=== PATIENT | female | born 1990 | race Caucasian/White ===

== ENCOUNTER 2016-11-27 15:34 | Emergency (ER) | payer OTHER ==
[~2016-11-27] VITALS: Ht 157.5 cm; Wt 65.5 kg
[2016-11-27 15:41] VITALS: TEMP 37; Ht 157.5 cm; Wt 65.5 kg
[2016-11-27] MEDS ORDERED: ACETAMINOPHEN 325 MG TAB PO STA (17:06)
[2016-11-27] MEDS ORDERED: SODIUM CHLORIDE 0.9% 1000ML 1,000 ML IV STA (17:06)
[2016-11-27] MEDS ORDERED: ACET-1311 PO (17:37)
[2016-11-27] MEDS ORDERED: IBUP-1050 PO (17:37)
[2016-11-27 18:02] LABS: URINE APPEARANCE CLOUDY (CLEAR); URINE BILIRUBIN NEG (NEG); URINE COLOR DK YELLOW; URINE EPITHELIAL CELL AUTO >30 /lpf (0-5); URINE NITRITE NEG (NEG); URINE PH 5.5 (4.5-7.5); URINE SPECIFIC GRAVITY 1.025 (1.000-1.030); UROBILINOGEN NEG (NEG)
[2016-11-27 18:05] LABS: MANUAL MICROSCOPIC REQUIRED? NO; REVIEW REQ? YES
[2016-11-27 18:14] LABS: URINE MUCUS PRESENT (NONE PRSENT)
[2016-11-27 18:45] LABS: BASO % 0.1 %; BASO ABS # 0.01 K/uL (0-0.2); COMPLETE YES; EOS % 0.1 %; HEMATOCRIT 40.2 % (37-47); IG% 0.2 %; LYMPH % 11.2 %; LYMPH ABS # 1.44 K/uL (1.2-3.4); MEAN CELL VOLUME 87.6 fL (80-100); MEAN CORPUSCULAR HEMOGLOBIN 29.8 pg (25-34); MEAN CORPUSCULAR HGB CONC 34.1 g/dl (32-36); MONO % 8.5 %; NEUT % 79.9 %; PLATELET COUNT 237 K/uL (130-400); RED BLOOD COUNT 4.59 M/uL (4.2-5.4); WHITE BLOOD COUNT 12.86 K/uL (4.8-10.8)
[2016-11-27 19:17] LABS: BUN/CREATININE RATIO 13.3 (10-20); CALCIUM 8.9 mg/dl (8.5-10.1); CREATININE 0.59 mg/dl (0.60-1.20); POTASSIUM 3.4 mmol/L (3.5-5.1)
--- NOTE | 2016-11-27 19:37 | DIAGNOSTIC IMAGING REPORT ---
CHEST 2 VIEWS ROUTINE CLINICAL HISTORY: Persistent cough. COMPARISON STUDY: No previous studies for comparison. FINDINGS: The cardiac and mediastinal contours are normal. There is no evidence of focal pulmonary consolidation. There is no evidence of failure. No pleural effusions are visualized.[ IMPRESSION: No active disease in the chest. Electronically signed by: Yusuf Castro M.D. 11/27/2016 7:36 PM Dictated Date/Time: 11/27/2016 7:36 PM
[2016-11-27] MEDS ORDERED: AMOXICILLIN 250 MG CAP PO STA (20:02)
[2016-11-27] MEDS ORDERED: AMOX500C3 PO (20:04)
[2016-11-27 20:22] VITALS: BP 109/86; PULSE 86; O2SAT 98
[2016-11-27 20:22] LABS: LYME DISEASE AB IGG NEG (NEG); LYME DISEASE AB IGM EQUIVOCAL (NEG)
--- NOTE | 2016-11-27 22:07 | EMERGENCY ROOM VISIT NOTE ---
History Report prepared by Iveth: Mary Ivey Under the Supervision of: Dr. Bassem Garcia M.D. First contact with patient: 16:58 Chief Complaint: FLU LIKE SX Stated Complaint: FEVER,CONGESTED,VOMITING,STIFF NECK,COUGH History of Present Illness The patient is a 26 year old female who presents to the Emergency Room with complaints of persistent flu-like symptoms that began about a month ago. The patient notes that she has had a productive cough with yellow sputum for several weeks now. She feels slightly short of breath with coughing but denies shortness of breath when she is not coughing. She also complains of a fever, headache and congestion which have been continuous. Her highest temperature was 101. This morning, her temperature was 100.7. She also reports body aches and neck tightness. She had some diarrhea about a week ago and started vomiting more recently. She does not have an appetite. The patient took Advil today but has not taken Tylenol. Denies chest pain, abdominal pain, chance of , or other complaints. The patient is currently on her period and denies chance of . She has never had mono or strep. Source of History: patient Onset: 1 month ago Position: other (global) Quality: other (flu-like symptoms) Timing: other (persistent) Associated Symptoms: + SOB (with coughing), + cough (productive with yellow sputum), + diarrhea, + fevers (Tmax 101), + neck pain, + sorethroat, + vomiting , No abdominal pain, No chest pain Note: Other symptoms: congestion, body aches Review of Systems See HPI for pertinent positives & negatives. A total of 10 systems reviewed and were otherwise negative. Past Medical & Surgical Medical Problems: (1) No Known Active Medical Problems Family History No pertinent family history stated. Social History Smoking Status: Never Smoker Current/Historical Medications Scheduled Amoxicillin (Amoxil), 500 MG PO TID Ibuprofen (Advil), 200-600 MG PO Q4H Allergies Coded Allergies: Ciprofloxacin (Verified Allergy, Unknown, vomits, 11/27/16) Naproxen (Verified Allergy, Unknown, throat swell, 11/27/16) Physical Exam Vital Signs Date Time Temp Pulse Resp B/P Pulse Ox O2 Delivery O2 Flow Rate FiO2 11/27/16 20:22 86 18 109/86 98 11/27/16 18:27 90 16 111/71 97 Room Air 11/27/16 17:29 90 16 12/73 97 Room Air 11/27/16 15:41 37.0 105 18 112/72 96 Room Air Physical Exam Constitutional: Vital signs reviewed. Eyes: Pupils are equal round reactive to light. Conjunctiva are noninjected. ENT: Pharynx is mildly erythematous without exudate. Mucous membranes are moist. Neck supple without meningeal signs. Respiratory: Clear to auscultation bilaterally. Breath sounds are equal bilaterally. Cardiovascular: Regular rate and rhythm. No rubs or gallops. GI: Soft, nondistended and nontender. Bowel sounds are present. No organomegaly. Musculoskeletal: No peripheral edema. No CVA tenderness. Integumentary: No cyanosis. Neurological: The patient is awake and alert. Cranial nerves II-XII are intact. Motor is 5 out of 5 all extremities. Sensation is intact to light touch all extremities. Normal speech. No pronator drift. Negative Kernig's and Brudzinski's signs. Psychiatric: Normal affect. Medical Decision & Procedures ER Provider Diagnostic Interpretation: X-ray results as stated below per interpretation by me and the radiologist: CHEST 2 VIEWS ROUTINE CLINICAL HISTORY: Persistent cough. COMPARISON STUDY: No previous studies for comparison. FINDINGS: The cardiac and mediastinal contours are normal. There is no evidence of focal pulmonary consolidation. There is no evidence of failure. No pleural effusions are visualized.[ IMPRESSION: No active disease in the chest. Electronically signed by: Yusuf Castro M.D. 11/27/2016 7:36 PM Dictated Date/Time: 11/27/2016 7:36 PM Laboratory Results 11/27/16 18:04 Red Blood Count 4.59, Mean Corpuscular Volume 87.6, Mean Corpuscular Hemoglobin 29.8, Mean Corpuscular Hemoglobin Concent 34.1, Mean Platelet Volume 10.0, Neutrophils (%) (Auto) 79.9, Lymphocytes (%) (Auto) 11.2, Monocytes (%) (Auto) 8.5, Eosinophils (%) (Auto) 0.1, Basophils (%) (Auto) 0.1, Neutrophils # (Auto) 10.29, Lymphocytes # (Auto) 1.44, Monocytes # (Auto) 1.09, Eosinophils # (Auto) 0.01, Basophils # (Auto) 0.01 11/27/16 18:04 Test 11/27/16 17:29 11/27/16 18:04 11/27/16 19:05 Urine Color DK YELLOW Urine Appearance CLOUDY (CLEAR) Urine pH 5.5 (4.5-7.5) Urine Specific [place] 1.025 (1.000-1.030) Urine Protein NEG (NEG) Urine Glucose (UA) NEG (NEG) Urine Ketones 3+ (NEG) Urine Occult Blood 3+ (NEG) Urine Nitrite NEG (NEG) Urine Bilirubin NEG (NEG) Urine Urobilinogen NEG (NEG) Urine Leukocyte Esterase NEG (NEG) Urine WBC (Auto) 1-5 /hpf (0-5) Urine RBC (Auto) 0-4 /hpf (0-4) Urine Hyaline Casts (Auto) 1-5 /lpf (0-5) Urine Epithelial Cells (Auto) >30 /lpf (0-5) Urine Bacteria (Auto) 1+ (NEG) Urine Pathogenic Casts /lpf (0) Urine Mucus PRESENT (NONE PRSENT) Urine Test NEG (NEG) Influenza Type A Antigen Neg for Influ A (NEG) Influenza Type B Antigen Neg for Influ B (NEG) White Blood Count 12.86 K/uL (4.8-10.8) Red Blood Count 4.59 M/uL (4.2-5.4) Hemoglobin 13.7 g/dL (12.0-16.0) Hematocrit 40.2 % (37-47) Mean Corpuscular Volume 87.6 fL (80-100) Mean Corpuscular Hemoglobin 29.8 pg (25-34) Mean Corpuscular Hemoglobin Concent 34.1 g/dl (32-36) Platelet Count 237 K/uL (130-400) Mean Platelet Volume 10.0 fL (7.4-10.4) Neutrophils (%) (Auto) 79.9 % Lymphocytes (%) (Auto) 11.2 % Monocytes (%) (Auto) 8.5 % Eosinophils (%) (Auto) 0.1 % Basophils (%) (Auto) 0.1 % Neutrophils # (Auto) 10.29 K/uL (1.4-6.5) Lymphocytes # (Auto) 1.44 K/uL (1.2-3.4) Monocytes # (Auto) 1.09 K/uL (0.11-0.59) Eosinophils # (Auto) 0.01 K/uL (0-0.5) Basophils # (Auto) 0.01 K/uL (0-0.2) RDW Standard Deviation 42.0 fL (36.4-46.3) RDW Coefficient of Variation 13.2 % (11.5-14.5) Immature Granulocyte % (Auto) 0.2 % Immature Granulocyte # (Auto) 0.02 K/uL (0.00-0.02) Anion Gap 13.0 mmol/L (3-11) Est Creatinine Clear Calc Drug Dose 130.6 ml/min Estimated GFR () 148.7 Estimated GFR (Non- 128.3 BUN/Creatinine Ratio 13.3 (10-20) Calcium Level 8.9 mg/dl (8.5-10.1) Total Bilirubin 1.2 mg/dl (0.2-1) Direct Bilirubin 0.2 mg/dl (0-0.2) Aspartate Amino Transf (AST/SGOT) 9 U/L (15-37) Alanine Aminotransferase (ALT/SGPT) 14 U/L (12-78) Alkaline Phosphatase 67 U/L (45-117) Total Protein 8.0 gm/dl (6.4-8.2) Albumin 4.4 gm/dl (3.4-5.0) Lyme Disease IgG Antibody NEG (NEG) Monoscreen NEG (NEG) Laboratory results as reviewed by me. Medications Administered Medications (Trade) Dose Ordered Sig/Chad Route Start Time Stop Time Status Last Admin Dose Admin Sodium Chloride (Nss 1000ml) 1,000 ml @ 999 mls/hr Q1H1M STAT IV 11/27/16 17:06 11/27/16 18:06 DC 11/27/16 18:25 999 MLS/HR Acetaminophen (Tylenol Tab) 650 mg NOW STAT PO 11/27/16 17:06 11/27/16 17:08 DC 11/27/16 18:25 650 MG Amoxicillin (Amoxil Cap) 500 mg NOW STAT PO 11/27/16 20:02 11/27/16 20:03 DC 11/27/16 20:08 500 MG ED Course 1701: The patient was evaluated in room B4. A complete history and physical exam was performed. 1706: Ordered Acetaminophen 1000 ml @ 999 mls/hr IV, NSS 1000 ml @ 999 mls/hr IV. 1999: I reassessed the patient and talked to her about test results. The patient will be discharged home. 2001: Ordered Amoxicillin 500 mg PO. Medical Decision This is a 26-year-old female presents with flulike illness. Differential diagnosis includes influenza, bronchitis, pneumonia, mononucleosis, viral syndrome, UTI. I did perform a limited focused review of portions of the patient's old chart on the electronic medical record. The patient has had no prior visits to this hospital. I did evaluate the patient as noted above. She is presenting with a flulike illness which she has had for approximately a month. She has a headache and some tightness to her neck but she has had this for a month and meningitis seems very unlikely. She has no meningeal signs on examination. She is neurologically intact and has a negative Kernig and Brudzinski sign. She does have a sore throat and productive cough. IV access was established. I did order and personally review the patient's chest x-ray as described above. I did order and review the patient's blood work as noted in the electronic medical record. Her white blood cell count is slightly elevated. This is a nonspecific finding. I did order a urinalysis. A urine culture was sent. She denies urinary symptoms. Rapid flu test was negative. I did treat her with normal saline IV. She was also given Tylenol. I did reassess the patient. I did discuss the test results with the patient. The Lyme titer is pending at this time. I did tell her that we would call her with a positive result if it came back. I did explained my reasoning to her why I did not feel she had meningitis. I did recommend antibiotic treatment given she has had a significant cough for about a month. I did treat her with amoxicillin. She was discharged with a prescription for amoxicillin and advised follow up with the [facility]. Later the Lyme titer came back equivocal. I did attempt to call her but the phone number she provided was not functioning at the time. We will wait for the Western blot and if that comes up positive we will attempt to call her again. Impression Primary Impression: Acute febrile illness Additional Impression: Borderline Lyme serology Scribe Attestation The scribe's documentation has been prepared under my direct and personally reviewed by me in its entirety. I confirm that the note above accurately reflects all work, treatment, procedures, and medical decision making performed by me. Departure Information Dispostion Home / Self-Care Prescriptions Amoxicillin (AMOXIL) 500 Mg Cap 500 MG PO TID, #30 CAP Prov: Bassem Garcia M.D. 11/27/16 Referrals No Doctor, Assigned (PCP) Patient Instructions ED Fever Unconf Cause, [facility] Additional Instructions You have been examined and treated today on an emergency basis only. This is not a substitute for, or an effort to provide, complete comprehensive medical care. It is impossible to recognize and treat all injuries or illnesses in a single emergency department visit. It is therefore important that you follow up closely with [facility] within 48 hours. Call as soon as possible for an appointment. Return for worsening symptoms or if you develop rash, vomiting, chest pain or any other concerning symptoms. Problem Qualifiers
[2016-12-02 12:20] LABS: 18KDIGG BAND NONREACTIVE (NONREACTIVE); 23KDIGG BAND NONREACTIVE (NONREACTIVE); 23KDIGM BAND REACTIVE (NONREACTIVE); 28KDIGG BAND NONREACTIVE (NONREACTIVE); 30KDIGG BAND NONREACTIVE (NONREACTIVE); 39KDIGG BAND NONREACTIVE (NONREACTIVE); 39KDIGM BAND NONREACTIVE (NONREACTIVE); 41KDIGG BAND REACTIVE (NONREACTIVE); 41KDIGM BAND NONREACTIVE (NONREACTIVE); 45KDIGG BAND REACTIVE (NONREACTIVE); 58KDIGG BAND NONREACTIVE (NONREACTIVE); 66KDIGG BAND REACTIVE (NONREACTIVE); 93KDIGG BAND NONREACTIVE (NONREACTIVE)
== END 2016-11-27 20:22 | disposition home or self-care (01) ==
LOC: C.EDB 15:36
DX: R50.9 Fever, unspecified (principal); R79.89 Other specified abnormal findings of blood chemistry; Z88.8 Allergy status to other drugs, medicaments and biological substances